=== PATIENT | male | born 1945 | race Caucasian/White ===

== ENCOUNTER → 2016-10-06 | Outpatient (CLI) | payer MEDICARE, OTHER ==
[~2016-10-06] MED LIST: ARGININE PO; CLARITIN10 MG PO; COREG25 MG PO; DEMADEX20 MG PO; DESYREL50 MG PO; FISH OIL1000 MG PO; ISORDIL40 MG PO; LANTUS SOL100 UNIT/1 SUB-Q; LIPITOR40 MG PO; NITROSTAT0.4 MG SL; NORCO 5-325 MG1 TAB PO; NORVASC10 MG PO; NOVOLOG100 UNIT/1 SUB-Q; NOVOLOG100 UNIT/M SUB-Q; OMEGA 3 1,0001 EACH PO; PLAVIX75 MG PO; PROTONIX40 MG PO; RANEXA ER500 MG PO; TIMOPTIC XE 0.5%5 ML OPHTH; XALATAN2.5 ML OPHTH; ZESTRIL40 MG PO; ZYLOPRIM300 MG PO; [UNRECOGNIZED DRUG - OTHER]; [UNRECOGNIZED DRUG - OTHER] PO; [UNRECOGNIZED DRUG - OTHER] PO; [UNRECOGNIZED DRUG - OTHER] PO
--- NOTE | ~2016-10-06 | ENPV ---
Vascular Lower Extremities DVT Study Procedure Demographics Patient Name ROBE VAUGHAN Date of Study 10/06/2016 Patient Number [id number] Gender Male Date of 1945 Age 71 Visit Number [id number] Height Accession Number [id number] Weight Room Number BSA BMI Referring Franklyn Cantrell MD Interpreting Macario Claudio MD Physician Edwin Thomas MD Physician Physician Ordering Physician Franklyn Cantrell MD Motor Mechanic Lifestyle Director Ankur Vicente T, [facility] [[email or web address]] Conclusions Summary No evidence of deep vein thrombosis or superficial thrombophlebitis in the right lower extremity . Procedure Type of Study: Veins:Lower Extremities DVT Study, Lower Extremity Right. Indications for Study:Swelling. Appropriate Use Criteria:6 Allergies - No known allergies. Patient Status:Routine. Study Location:Vascular Lab. Technical Quality:Adequate visualization. - Preliminary reported to:Dr. Estes. Velocities are measured in cm/s ; Diameters are measured in cm Right Lower Extremities DVT Study Measurements Right 2D and Doppler Measurements + + + + +------+------+ + !Location !Visualized!Compressibility!Thrombosis!Signal!Reflux!Reflux ! ! ! ! ! ! ! !(sec) ! + + + + +------+------+ + !GSV Thigh !Yes !Yes !None !Phasic! ! ! + + + + +------+------+ + !Common !Yes !Yes !None !Phasic! ! ! !Femoral ! ! ! ! ! ! ! + + + + +------+------+ + !Prox !Yes !Yes !None !Phasic! ! ! !Femoral ! ! ! ! ! ! ! + + + + +------+------+ + !Mid Femoral!Yes !Yes !None !Phasic! ! ! + + + + +------+------+ + !Dist !Yes !Yes !None !Phasic! ! ! !Femoral ! ! ! ! ! ! ! + + + + +------+------+ + !Popliteal !Yes !Yes !None !Phasic! ! ! + + + + +------+------+ + !PTV !Yes !Yes !None !Phasic! ! ! + + + + +------+------+ + !Peroneal !Yes !Yes !None !Phasic! ! ! + + + + +------+------+ + Left Lower Extremities DVT Study Measurements Left 2D and Doppler Measurements + + + + +------+------+ + !Location !Visualized!Compressibility!Thrombosis!Signal!Reflux!Reflux ! ! ! ! ! ! ! !(sec) ! + + + + +------+------+ + !GSV Thigh !Yes !Yes !None !Phasic! ! ! + + + + +------+------+ + !Common !Yes !Yes !None !Phasic! ! ! !Femoral ! ! ! ! ! ! ! + + + + +------+------+ + Signature dtt: SIL[facility] dtd: 10/06/16 1625 Physician Self Edit
== END | disposition disaster alternative care site (69) ==
LOC: GCAR 16:00
DX: M79.604 Pain in right leg (principal); L53.9 Erythematous condition, unspecified